=== PATIENT | female | born 1940 | race Caucasian/White ===

== ENCOUNTER 2020-01-01 07:50 | Day surgery (SDC) | payer MEDICARE ==
[~2020-01-01] VITALS: Ht 157.5 cm; Wt 63.5 kg
[~2020-01-01 07:50] MED LIST: ASPIR-LOW81 MG PO; CARBIDOPA-LEVO1 EAC1 PO; ENALAPRIL MALEA20 MG PO; HYDROCHLOROTHIA25 MG PO; LOVASTATIN20 MG PO; NORVASC5 MG PO; OXYBUTYNIN CHLO10 MG PO; ROPINIROLE HCL1 MG PO; VITAMIN B COMP1 EAC1 PO; VITAMIN D310 MC5 PO
--- NOTE | 2020-01-01 12:17 | NUR ---
01/01/20 1217 Sheets,Lin 1212 PT ARRIVED TO PACU WITH ORAL AIRWAY IN PLACE AND O2 MASK AT 6L. RESP EVEN AND UNLABORED. 4 LAP SITES TO ABD. IV INFUSING.
--- NOTE | 2020-01-02 06:24 | OR ---
[facility] [address] [place], [place] [address] Signed DATE OF OPERATION: 01/01/2020 SURGEON: Oren Sandra MD PREOPERATIVE DIAGNOSES: 1. Chronic cholecystitis with cholelithiasis. 2. Biliary colic. POSTOPERATIVE DIAGNOSES: 1. Chronic cholecystitis with cholelithiasis. 2. Biliary colic. PROCEDURE PERFORMED: Laparoscopic cholecystectomy with intraoperative cholangiogram. ESTIMATED BLOOD LOSS: None. FINDINGS: Nelda had three moderate-sized gallstones in the gallbladder. She had some mild chronic inflammatory changes. The intraoperative cholangiogram was unremarkable. INDICATIONS: Nelda is a 79-year-old female, who had been asked to see me in the office. She came with her daughter. She has been having trouble with right upper quadrant abdominal pain radiating through to her back. She said it is intermittent, but it has been getting worse. She said it is often worse, but not always. She also has Parkinson disease. She said that has been pretty stable. She does get around with her 4-point cane. Her daughter actually stays with her six days a week to help her out. She can still drive herself around town. Her daughter had confirmed her symptoms. She ended up with an ultrasound showing her gallstones. However, on physical exam, she had a new systolic ejection murmur. We had her see our sample grinder and she went through that just fine including the echocardiogram. She returns now to have the gallbladder removed. She and her 2 daughters both told me the symptoms have continued. While in the office, I gave them a [employer] brochure on the gallbladder. They are very familiar with the location and function of the gallbladder. We discussed laparoscopic versus open cholecystectomy. They understand the expected intraop and postop course. There is risk to surgery including, but not limited to bleeding, infection, scarring, change in contour of the skin, damage to bowel, damage to main bile duct, incisional hernias, and other unforeseen comorbidities. In addition, we did address her Parkinson disease. There is Electronically Signed By: OREN SANDRA MD 01/02/20 0624 PATIENT NAME: NELDA CHAVIRA OPERATIVE REPORT DATE OF : 42 REPORT #: [id number] PHYSICIAN: OREN SANDRA MD PCP: KWAME WEAVER PA-C REPORT IS CONFIDENTIAL AND NOT TO BE RELEASED WITHOUT AUTHORIZATION [facility] [address] [place] [id number] Signed always concern that it could make the Parkinson disease worse. They had expressed understanding, wished to proceed. PROCEDURE NOTE: Nelda was taken in the operating room and placed in the supine position. She was placed under general endotracheal tube anesthesia. She was given preoperative antibiotics along with subcutaneous heparin. SCDs were utilized. She was then prepped and draped in the usual sterile fashion. All trocars were then placed in usual positions under direct visualization of camera without difficulty. She has a previous right paramedian incision from an appendectomy. She had some adherent omentum in that area and we simply left that intact. Pictures were taken throughout for photodocumentation. We grasped the gallbladder and elevated the right upper quadrant. The triangle of Calot was dissected free and a clip was placed across the cystic artery and it was divided. We could easily see the lymph node of Calot. Intraoperative cholangiocatheter was inserted into the cystic duct. The intraoperative cholangiogram was then performed. This was found to be unremarkable. There were no filling defects and the contrast flowed readily into the duodenum. The gallbladder was observed. The cystic duct stump was then secured with a PDS Endoloop and 2 clips were placed across the cystic duct stump to don its location. The gallbladder was then removed from the gallbladder fossa with the help of the cautery and placed into an EndoCatch bag. The right upper quadrant was irrigated and suctioned out until clear. We used our laparoscopic suturing device to pass 0 Vicryl suture on either side of fascia of subxiphoid trocar site. This was tied down to close this fascia primarily. After this, the gas was allowed to escape and all trocars removed along with the gallbladder. The gallbladder was opened on the back table by our circulating nurse for photodocumentation. We closed the fascia of the supraumbilical trocar site with interrupted [id number] and simple 0 Vicryl sutures. Local anesthetic was injected into all trocar sites. Each trocar site was irrigated and suctioned out until clear. The skin and dermis of each trocar site were closed with interrupted 3-0 subcuticular Monocryl sutures. Dry gauze and tape were applied to all incisions. After this, Nelda was awakened from anesthesia, extubated in the OR, and taken to Recovery in stable condition. Oren Sandra MD [facility] /[id number] Electronically Signed By: OREN SANDRA MD 01/02/20 0624 PATIENT NAME: NELDA CHAVIRA OPERATIVE REPORT DATE OF : 42 REPORT #: [id number] PHYSICIAN: OREN SANDRA MD PCP: KWAME WEAVER PA-C REPORT IS CONFIDENTIAL AND NOT TO BE RELEASED WITHOUT AUTHORIZATION [address] [facility] [place], [place] [address] Signed cc: MD Kwame Hernandez PA Stephen Ewer, MD Copies: OREN SANDRA MD, STEPHEN MD ~ Electronically Signed By: OREN SANDRA MD 01/02/20 0624 PATIENT NAME: NELDA CHAVIRA OPERATIVE REPORT DATE OF : 42 REPORT #: [id number] PHYSICIAN: OREN SANDRA MD PCP: KWAME WEAVER PA-C REPORT IS CONFIDENTIAL AND NOT TO BE RELEASED WITHOUT AUTHORIZATION
--- NOTE | 2020-01-02 15:05 | PATH ---
[facility] [address] [place], [place] [address] Signed SPECIMEN(S): A GALLBLADDER AND STONES SPECIMEN SOURCE: A. GALLBLADDER AND STONES CLINICAL HISTORY: Cholelithiasis. FINAL PATHOLOGIC DIAGNOSIS: Gallbladder, cholecystectomy: - Chronic cholecystitis. - Adenomyoma. - Cholelithiasis. NAL:cml:C2NR MICROSCOPIC EXAMINATION: Histologic sections of all submitted blocks are examined by light microscopy. These findings, together with the gross examination, support the pathologic diagnosis. GROSS DESCRIPTION: The specimen, labeled "KB, A" and "gallbladder and stones" on the requisition, is received in formalin and consists of Specimen: Previously opened gallbladder. Dimensions: 7.5 x 3.5 x 3.0 cm. Serosa: [place] and smooth. Cystic Duct: Unobstructed. Calculi: Three hard black smooth multifaceted calculi that vary from 1.4-1.7 cm. Mucosa: Pale red and velvety. Wall thickness: 0.1-0.2 cm. Lymph node: No pericystic lymph node is grossly identified. Additional: None. Roofer Gypsum sections are submitted in cassette A1. SS (under the direct supervision of a pathologist) The Gross Description was prepared using a voice recognition system. The report was reviewed for accuracy; however, sound-alike word errors, addition and/or deletions may occur. If there is any question about this report, please contact Client Services. PERFORMING LABORATORY: PATIENT NAME: NELDA CHAVIRA PATHOLOGY DATE OF : 42 REPORT #: [id number] PHYSICIAN: POLINA FLANAGAN PCP: KWAME WEAVER PA-C REPORT IS CONFIDENTIAL AND NOT TO BE RELEASED WITHOUT AUTHORIZATION [facility] [address] [place], [place] [address] Signed The technical component [place] [address] (Small Engine Mechanic: Julia Gonsalez MD; CLIA# [id number]). Professional [facility] [address] [address] (CLIA# [id number]). Diagnostician: Ashley Mayfield MD Pathologist Electronically Signed 01/02/2020 Copies: ~ PATIENT NAME: NELDA CHAVIRA PATHOLOGY DATE OF : 42 REPORT #: [id number] PHYSICIAN: POLINA FLANAGAN PCP: KWAME WEAVER PA-C REPORT IS CONFIDENTIAL AND NOT TO BE RELEASED WITHOUT AUTHORIZATION
== END 2020-01-01 14:45 | disposition home or self-care (01) ==
LOC: DS 07:50
PROVIDERS: Colon & Rectal Surgery
PROC: BF13YZZ Fluoroscopy of Gallbladder and Bile Ducts using Other Contrast (ICD-10-PCS; 2020-01-01)
PROC: 0FT44ZZ Resection of Gallbladder, Percutaneous Endoscopic Approach (ICD-10-PCS; principal; 2020-01-01 09:15)
DX: K80.10 Calculus of gallbladder with chronic cholecystitis without obstruction (principal); D13.5 Benign neoplasm of extrahepatic bile ducts; I10 Essential (primary) hypertension; E78.5 Hyperlipidemia, unspecified; M19.90 Unspecified osteoarthritis, unspecified site; G20 Parkinson's disease; K21.9 Gastro-esophageal reflux disease without esophagitis; K59.00 Constipation, unspecified; Z79.82 Long term (current) use of aspirin; Z79.899 Other long term (current) drug therapy; Z87.891 Personal history of nicotine dependence
CPT/HCPCS: 74300; J0690; J1100; J1644; J1885; J2001; J2370; J2405; J2704; J3010; Q9967

== ENCOUNTER 2021-04-04 06:32 | Emergency (ER) | payer MEDICARE ==
[~2021-04-04] VITALS: Ht 157.5 cm; Wt 63.5 kg
[2021-04-04] MEDS ORDERED: ONDANSETRON ODT8 MG PO (09:19)
== END 2021-04-04 09:35 | disposition home or self-care (01) ==
LOC: ED 06:32
DX: K92.1 Melena (principal); G20 Parkinson's disease; I10 Essential (primary) hypertension; Z79.899 Other long term (current) drug therapy
CPT/HCPCS: 80053; 85025; 85610; 85730; 86850; 86900; 86901; 99284; J7040

== ENCOUNTER 2021-05-26 14:19 | Emergency (ER) | payer MEDICARE ==
[~2021-05-26] VITALS: Ht 152.4 cm; Wt 60.3 kg
[~2021-05-26 14:19] MED LIST changes: +ONDANSETRON ODT8 MG PO
== END 2021-05-26 18:20 | disposition home or self-care (01) ==
LOC: ED 14:19
DX: S46.911A Strain of unspecified muscle, fascia and tendon at shoulder and upper arm level, right arm, initial encounter (principal); S76.912A Strain of unspecified muscles, fascia and tendons at thigh level, left thigh, initial encounter; S00.03XA Contusion of scalp, initial encounter; I10 Essential (primary) hypertension; G20 Parkinson's disease; W01.198A Fall on same level from slipping, tripping and stumbling with subsequent striking against other object, initial encounter; Z23 Encounter for immunization; Z79.899 Other long term (current) drug therapy
CPT/HCPCS: 70450; 71045; 73030; 73552; 90471; 90715; 99284-25

== ENCOUNTER 2023-02-18 09:13 | Inpatient (IN) | payer MEDICARE ==
[~2023-02-18] VITALS: Ht 152.4 cm; Wt 58.2 kg
[2023-02-18] VITALS (14 sets, daily range): BP systolic 92–143; BP diastolic 40–54
--- OUTSIDE RECORDS SUMMARY | 2023-02-18 09:14 | XMS ---
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 ESebastian VISIT COUNT (12 MO.) 1 MIGUEL Campos TOTAL 1 NOTE: Visits indicate total known visits. ED/UCC VISIT TRACKING (12 MO.) 02/18/2023 09:13 [facility] OR TYPE: Emergency COMPLAINT: - WEAKNESS INPATIENT VISIT TRACKING (12 MO.) No inpatient visits to display in this time frame [email or web address]
[2023-02-19] VITALS (81 sets, daily range): BP systolic 12–123; BP diastolic 31–73
[2023-02-19] MEDS ORDERED: BAYER CHEWABLE81 MG PO (06:33)
[2023-02-19] MEDS ORDERED: NEURONTIN100 MG PO (06:34)
[2023-02-19] MEDS ORDERED: METAMUCIL GUMMIES (06:35)
[2023-02-19] MEDS ORDERED: CA/MG/ZINC (06:36)
--- NOTE | 2023-02-19 16:43 | EKG ---
[facility] [address] [facility] [place], [place] [address] Signed Normal sinus rhythm Normal ECG No previous ECGs available Confirmed by KONRAD BAEZ MD ([id number]) on 02/19/2023 4:42:48 PM Electronically Signed By: KONRAD BAEZ MD 02/19/23 1643 PATIENT NAME: NELDA CHAVIRA Electrocardiogram DATE OF : 42 PHYSICIAN: KONRAD BAEZ MD REPORT #: [id number] REPORT IS CONFIDENTIAL AND NOT TO BE RELEASED WITHOUT AUTHORIZATION
[2023-02-20] VITALS (18 sets, daily range): BP systolic 75–1110; BP diastolic 45–64
[2023-02-20] MEDS ORDERED: TROSPIUM CHLORI20 MG PO (08:22)
[2023-02-20] MEDS ORDERED: OXYBUTYNIN CHLO15 MG PO (08:24)
[2023-02-21 05:15] VITALS: BP 137/63
[2023-02-21 09:24] VITALS: BP 135/61
[2023-02-21 14:13] VITALS: BP 124/60
[2023-02-21 16:22] VITALS: BP 119/44
[2023-02-21 21:10] VITALS: BP 127/60
[2023-02-22 06:08] VITALS: BP 138/63
[2023-02-22 09:38] VITALS: BP 150/73
[2023-02-22 13:32] VITALS: BP 138/67
[2023-02-22 14:22] VITALS: BP 149/69
[2023-02-22 18:19] VITALS: BP 153/77
[2023-02-22 19:48] VITALS: BP 144/70
[2023-02-23 05:52] VITALS: BP 149/68
[2023-02-23 09:57] VITALS: BP 135/61
[2023-02-23 15:28] VITALS: BP 139/57
[2023-02-23 16:51] VITALS: BP 129/55
[2023-02-23 20:22] VITALS: BP 131/59
[2023-02-24 05:49] VITALS: BP 148/70
[2023-02-24 09:21] VITALS: BP 152/71
[2023-02-24] MEDS ORDERED: [UNRECOGNIZED DRUG - OTHER] PO (11:52)
[2023-02-24 12:40] VITALS: BP 152/71
[2023-02-25] MEDS ORDERED: VENTOLIN HFA18 GM INH (16:16)
[2023-02-25] MEDS ORDERED: LEVOFLOXACIN500 MG PO (17:59)
== END 2023-02-24 12:45 | disposition home or self-care (01) | DRG 871 ==
LOC: ED 09:13 → MS 16:39 → CCU 16:39 → MS 02-20 17:17
PROVIDERS: ADMIT Internal Medicine; ATTEND Family Medicine
PROC: 3E033XZ Introduction of Vasopressor into Peripheral Vein, Percutaneous Approach (ICD-10-PCS; 2023-02-18)
PROC: 05H933Z Insertion of Infusion Device into Right Brachial Vein, Percutaneous Approach (ICD-10-PCS; 2023-02-18)
PROC: 3E03329 Introduction of Other Anti-infective into Peripheral Vein, Percutaneous Approach (ICD-10-PCS; 2023-02-18)
PROC: 0T9B70Z Drainage of Bladder with Drainage Device, Via Natural or Artificial Opening (ICD-10-PCS; principal; 2023-02-24)
DX: A41.9 Sepsis, unspecified organism (principal); G93.41 Metabolic encephalopathy; R65.21 Severe sepsis with septic shock; N17.9 Acute kidney failure, unspecified; Z20.822 Contact with and (suspected) exposure to COVID-19; Z66 Do not resuscitate; K52.9 Noninfective gastroenteritis and colitis, unspecified; I10 Essential (primary) hypertension; E78.5 Hyperlipidemia, unspecified; E87.6 Hypokalemia; I95.9 Hypotension, unspecified; R74.8 Abnormal levels of other serum enzymes; N32.81 Overactive bladder; E03.9 Hypothyroidism, unspecified; G20 Parkinson's disease; G25.81 Restless legs syndrome; R41.0 Disorientation, unspecified; R13.12 Dysphagia, oropharyngeal phase; J44.9 Chronic obstructive pulmonary disease, unspecified; Z90.49 Acquired absence of other specified parts of digestive tract; Z90.89 Acquired absence of other organs; Z79.890 Hormone replacement therapy; Z99.81 Dependence on supplemental oxygen; Z79.82 Long term (current) use of aspirin; Z79.899 Other long term (current) drug therapy
CPT/HCPCS: 36415; 36573; 71045; 74018; 74176; 74230; 80048; 80053; 81003; 82570; 83605; 83690; 83735; 84300; 84550; 85025; 87040; 87045; 87493; 92526; 92611; 93005; 93010; 97110; 97162; 97167; 97530; 97535; 99285-25; A9270; C9113; C9803; J1650; J1940; J1956; J2405; J2543; J3475; J3480; J3490; J7030; J7060; J7121; U0003

== ENCOUNTER 2023-02-25 14:52 | Emergency (ER) | payer MEDICARE ==
[~2023-02-25] VITALS: Ht 152.4 cm; Wt 58.1 kg
[~2023-02-25 14:52] MED LIST changes: +BAYER CHEWABLE81 MG PO; +CA/MG/ZINC; +METAMUCIL GUMMIES; +NEURONTIN100 MG PO; +OXYBUTYNIN CHLO15 MG PO; +TROSPIUM CHLORI20 MG PO; +[UNRECOGNIZED DRUG - OTHER] PO
--- OUTSIDE RECORDS SUMMARY | 2023-02-25 14:54 | XMS ---
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 E.D. VISIT COUNT (12 MO.) 2 [facility] TOTAL 2 NOTE: Visits indicate total known visits. ED/UCC VISIT TRACKING (12 MO.) 02/25/2023 14:52 [facility] OR TYPE: Emergency COMPLAINT: - SOB 02/18/2023 09:13 [facility] OR TYPE: Emergency COMPLAINT: - WEAKNESS INPATIENT VISIT TRACKING (12 MO.) 02/18/2023 16:39 MIGUEL [facility] OR TYPE: Medical Surgical COMPLAINT: - SOPHIA [email or web address]
[2023-02-25] MEDS ORDERED: VENTOLIN HFA18 GM INH (16:16)
[2023-02-25] MEDS ORDERED: LEVOFLOXACIN500 MG PO (17:59)
[2023-02-25 18:16] VITALS: BP 135/57
== END 2023-02-25 18:16 | disposition home or self-care (01) ==
LOC: ED 14:52
DX: J18.9 Pneumonia, unspecified organism (principal); I10 Essential (primary) hypertension; G20 Parkinson's disease; Z79.82 Long term (current) use of aspirin; Z79.899 Other long term (current) drug therapy
CPT/HCPCS: 36415; 71045; 80053; 85025; 99284-25

== ENCOUNTER 2023-10-11 17:46 | Inpatient (IN) | payer MEDICARE ==
[~2023-10-11] VITALS: Ht 152.4 cm; Wt 48.0 kg
[~2023-10-11 17:46] MED LIST changes: +LEVOFLOXACIN500 MG PO; +METAMUCIL FIBER2 GM PO; -METAMUCIL GUMMIES; +VENTOLIN HFA18 GM INH
[2023-10-11] MEDS ORDERED: TROSPIUM CHLORI20 MG PO (18:38)
[2023-10-11] MEDS ORDERED: HYDROCHLOROTHIA25 MG PO (18:38)
[2023-10-11 19:10] LABS: HEMATOCRIT 45.3 % (35.0-50.0); HEMOGLOBIN 14.6 g/dL (12.0-18.0); MCH 26.8 (27-36); MCHC 32.2 g/dl (30-36); MCV 83.3 fl (81-99); PLATELET COUNT 346 K/uL (140-440); RBC 5.44 M/ul (4.3-5.7); RDW 13.8 (10.5-15.0)
[2023-10-11 19:10] LABS: BILIRUBIN, URINE NEGATIVE (negative); BLOOD/HGB, URINE NEGATIVE (Negative); KETONE, URINE NEGATIVE (Negative); LEUK ESTERASE, URINE NEGATIVE (negative); NITRITE, URINE NEGATIVE (negative); PH, URINE 5.5 (5-7)
[2023-10-11 19:27] LABS: ALBUMIN 3.7 g/dL (3.4-5.0); ALBUMIN/GLOBULIN RATIO 1.19 (1.1-2.4); ANION GAP 13.6 (7-21); BILIRUBIN, TOTAL 1.4 ng/dL (0.2-1.0); BUN/CREATININE RATIO 21.6 (6.0-28.6); CALCIUM 9.6 mg/dL (8.5-10.1); CREATININE, SERUM 1.25 mg/dL (0.55-1.02); POTASSIUM 3.6 mmol/L (3.5-5.1); PROTEIN, TOTAL 6.8 g/dL (6.4-8.2)
[2023-10-11 19:34] LABS: BANDS, MANUAL DIFF 2; LYMPHOCYTES, MANUAL DIFF 3; MONOCYTES, MANUAL DIFF 3; NEUTROPHILS, MANUAL DIFF 92
[2023-10-11 20:47] LABS: LACTIC ACID, BLOOD 2.2 mmol/L (0.4-2.0)
[2023-10-11 22:19] VITALS: BP 103/45
[2023-10-11 22:30] VITALS: BP 102/48
--- NOTE | 2023-10-11 22:30 | NUR ---
PATIENT ARRIVED TO THE UNIT VIA STRETCHER. MOVED OVER TO BED WITH 2PA. PATIENT TOLERATED WELL. PATIENT IS TIRED BUT ORIENTED X4. VS STABLE. LUNG SOUNDS CLEAR. NO NAUSEA AT THIS TIME. ABD SOFT BUT TENDER. ATTENDS IN PLACE, CLEAN AND DRY. ASSISTED PATIENT TO POSITION FOR COMFORT. IV SITE WNL X1; IV FLUIDS AND ABX STARTED PER ORDER. PATIENT'S FAMILY ASSISTED IN PATIENT'S ADDMISSION QUESTIONS, THEY ARE HER CAREGIVERS. FAMILY TAKING ALL BELONGINGS WITH THEM EXCEPT THE PATIENT'S BLANKET. CONTACT INFORMATION VERIFIED.
[2023-10-11 23:00] VITALS: BP 100/51
[2023-10-12] VITALS (25 sets, daily range): BP systolic 82–116; BP diastolic 37–52
--- NOTE | 2023-10-12 01:00 | NUR ---
PATIENT APPEARS TO BE SLEEPING. WAKES EASILY TO VOICE. REPORTS BEING COMFORTABLE. ATTENDS ARE CLEAN AND DRY. IV FLUIDS INFUSING PER ORDER, SITE WNL. CALL LIGHT IN HAND.
--- NOTE | 2023-10-12 03:00 | NUR ---
PATIENT BP TRENDING DOWN. NO URINE OUTPUT. CALLED AND REPORTED LOW BP AND LACK OF OUTPUT TO . ORDER TO PROVIDED AN ADDITIONAL 250 MLS OF NS A BOLUS AND CONTINUE CURRENT IV FLUIDS. VERIFIED VIA REPEAT BACK. PATIENT PROVIDED 250MLS OVER 15MINS AND THEN IV FLUIDS CONTINUED AT 125 ML/HR. Q15M VS AT THIS TIME.
--- NOTE | 2023-10-12 04:15 | NUR ---
PATIENT'S BP CONTINUES TO BE CONCERNING. BLADDER SCAN SHOWED 375 MLS. PATIENT HAS YET TO VOID. PATIENT WAKES TO VOICE BUT IS DROWSY. REPORTED FINDINGS TO . ORDER RECEIVED FOR REPEAT 250 ML BOLUS AND BARRETO PLACEMENT. VERIFIED VIA REPEAT BACK.
--- NOTE | 2023-10-12 05:15 | NUR ---
UPDATE GIVEN TO . ORDER RECIEVED FROM 1L BOLUS TO START NOW. BARRETO TO BE PLACED.
[2023-10-12 05:27] LABS: BASOPHILS 0.5 % (0-2); HEMATOCRIT 33.7 % (35.0-50.0); HEMOGLOBIN 11.1 g/dL (12.0-18.0); LYMPHOCYTES 12.3 % (24-44); MCH 27.3 (27-36); MCV 82.5 fl (81-99); MONOCYTES 5.4 % (0-12); NEUTROPHILS 81.8 % (39-80); PLATELET COUNT 226 K/uL (140-440); RBC 4.08 M/ul (4.3-5.7); RDW 13.9 (10.5-15.0)
--- NOTE | 2023-10-12 05:30 | NUR ---
BARRETO PLACED WITHOUT ISSUES. DARK RHEA COLORED URINE NOTED. 350 MLS OUT INITIALLY. PATIENT TOLERATED WELL. SHE WAS ABLE TO ROLL TO ASSIST IN CHANGING HER ATTEND AND HAD A SMALL BM. PATIENT IS HOWEVER MORE DROWSY THAN PREVIOUSLY NOTED ON ADMISSION. ORIENTED X4.
[2023-10-12 05:38] LABS: ANION GAP 11.9 (7-21); BUN/CREATININE RATIO 29.34 (6.0-28.6); CALCIUM 7.6 mg/dL (8.5-10.1); CREATININE, SERUM 0.92 mg/dL (0.55-1.02); MAGNESIUM 1.5 mg/dL (1.8-2.4); POTASSIUM 2.9 mmol/L (3.5-5.1)
--- NOTE | 2023-10-12 06:01 | NUR ---
20G IV PLACED IN RAC, 2 ATTEMPTS. PT TOLERATED WELL. CALL LIGHT IN REACH.
--- NOTE | 2023-10-12 06:34 | NUR ---
UPDATE PROVIDED TO . WILL COME TO SEE PATIENT. ORDERS RECEIVED FROM ADDITIONAL 1L NS BOLUS. MAG AND K+ REPLACEMENT. SEE EMAR. VERIFIED VIA REPEAT BACK.
--- NOTE | 2023-10-12 06:36 | NUR ---
PATIENT UPDATED ON HER BP AND ELECTROLYTE RELACEMENT. PATIENT APPEARS TO HAVE MODERATE UNDERSTANDING OF HER SITUATION. PATIENT DROWSY BUT ALERTS TO VOICE AND IS ORIENTED X4. SIPS OF WATER PROVIDED.
--- NOTE | 2023-10-12 07:30 | NUR ---
IN TO SEE PATIENT AND LISTEN TO RN REPORT. ORDER RECIEVED FOR ONE TIME DOSE OF MIDODRINE. SEE EMAR.
--- NOTE | 2023-10-12 08:00 | NUR ---
REPORT RECIEVED FROM SANDWICH MACHINE OPERATOR RN. PER REPORT PATIENTS BLOOD PRESSURE HAS BEEN LOW. PATIENT ORDER FOR MIDODRINE PLACED PER MD. MD AWARE PATIENTS BLOOD PRESSURES HAVE REMAINED LOW EVEN WITH CONTINUED BOLUS OF FLUIDS PER ORDERS. PER REPORT PATIENT IS ALERT BUT DROWSY.
--- NOTE | 2023-10-12 08:49 | NUR ---
THIS RN IN TO DO AM MEDICATIONS. PATIENT BLOOD PRESSURE 80'S SYSTOLIC. PATIENTS DAUGHTERS AT THE BEDSIDE. UPDATED ON PLAN OF CARE AND MEDICATION ADMINISTRATION. PATIENT REMAINS DROWSY BUT IS ALERT AND ORIENTED. PATIENT BREATHSOUNDS ARE CLEAR AND DIMINISHED PATIENT TAKES SHAWLOW BREATHS. RT IN TO DO ASSESSMENT. NO OTHER NEEDS AT THIS TIME.
--- NOTE | 2023-10-12 11:00 | NUR ---
MEDICATIONS GIVEN WITH PUDDING THIS AM. PATIENT TOLERATED WELL. PATIENTS DAUGHTERS IN AT THE BEDSIDE. PATIENT IS MORE ALERT WITH BLOOD PRESSURES IMPROVING. PATIENT SITTING UP IN BED AND WATCHING TV.
--- NOTE | 2023-10-12 11:10 | NUR ---
Spoke with pt and her daughter, Desiree. Daughter live with mom and provides full care. Pt has multiple pieces of DME and denies need for more. Pt has a ramp into her home also. Pt states she gets around her home using her scooter. She also has a house keeper 1 x per week. They deny financial issues. Pt plans on dc to home daughter will assist.
--- NOTE | 2023-10-12 11:12 | NUR ---
CCU ROUNDS. PT PRESENTED POSITIVE DEMEANOR. PROVIDED SUPPORTIVE PRESENCE. PROVIDED PRAYER. PT EXPRESSED GRATITUDE.
[2023-10-12] MEDS ORDERED: ENALAPRIL MALEA20 MG PO (11:44)
[2023-10-12] MEDS ORDERED: KLOR-CON M1515 MEQ PO (11:44)
[2023-10-12] MEDS ORDERED: MELATONIN5 M2 PO (12:52)
--- NOTE | 2023-10-12 12:53 | NUR ---
MED REC COMPLETE
--- NOTE | 2023-10-12 13:00 | NUR ---
PATIENTS BLOOD PRESSURES CONTINUE TO DO OKAY AT THIS TIME. PATIENTS DAUGHTERS ASSISTED PATIENT WITH HER LUNCH. NO OTHER NEEDS AT THIS TIME.
[2023-10-12 13:59] LABS: ALBUMIN 2.1 g/dL (3.4-5.0); ANION GAP 12.3 (7-21); BILIRUBIN, TOTAL 0.7 ng/dL (0.2-1.0); BUN/CREATININE RATIO 25.58 (6.0-28.6); CALCIUM 7.2 mg/dL (8.5-10.1); CREATININE, SERUM 0.86 mg/dL (0.55-1.02); MAGNESIUM 1.9 mg/dL (1.8-2.4); POTASSIUM 3.3 mmol/L (3.5-5.1); PROTEIN, TOTAL 4.2 g/dL (6.4-8.2)
--- NOTE | 2023-10-12 15:01 | NUR ---
UPDATED MD RETSREPO ABOUT PATIENTS REPEAT LABS AND PATIETNS BLOOD PRESSURE BACK IN THE 80 SYSTOLIC. NEW ORDERS PLACED PER MD BELLS VERBAL ORDERS READ BACK ND REPEATED. POTASSIUM AND MIDODRINE ORDERS PLACED.
--- NOTE | 2023-10-12 17:00 | NUR ---
PATIENTS ASSESSMENT REMAINS UNCHANGED. PATIENTS DAUGHTERS LEFT AT THIS TIME. THEY DID ASK IF SOMETHING CHANGES IN THE NIGHT TO PLEASE NOTIFY THEM. PATIENT HAS CALL LIGHT AND AWAITING DINNER AT THIS TIME.
--- NOTE | 2023-10-12 18:30 | NUR ---
PATIENT ATE A FEW BITES OF DINNER. PATIENT CALLED AND DINNER REMOVED AND WARM BLANKET PLACED PER PATIENTS REQUEST. PATIENT HAS CALL LIGHT IN HER HAND AT THIS TIME. PATIENTS BLOOD PRESSURES HAVE REMAINED STABLE AT THIS TIME. PER MD IF PRESSURES DROP IN THE NIGHT TO NOTIFY MD FOR FURTHER ORDERS.
--- NOTE | 2023-10-12 19:18 | EKG ---
[facility] [address] [facility] [place] [address] Signed Normal sinus rhythm Left axis deviation Possible Inferior infarct , age undetermined Abnormal ECG When compared with ECG of 28-MAR-2023 19:05, Borderline criteria for Inferior infarct are now present Non-specific change in ST segment in Anterior leads Nonspecific T wave abnormality now evident in Inferior leads T wave inversion now evident in Anterior leads Confirmed by JUDIE RESTREPO MD ([id number]) on 10/12/2023 7:18:02 PM Electronically Signed By: JUDIE RESTREPO 10/12/23 191 PATIENT NAME: NELDA CHAVIRA Electrocardiogram DATE OF : 42 PHYSICIAN: JUDIE RESTREPO REPORT #: [id number] REPORT IS CONFIDENTIAL AND NOT TO BE RELEASED WITHOUT AUTHORIZATION
--- NOTE | 2023-10-12 20:59 | NUR ---
SBAR REPORT RECEIVED FROM WESLY BIGGS. PATIENT NELDA IS FOUND TO BE WATCHING TV AND DENIES ANY CURRENT NEEDS. VSS AND WDL PER MONITOR. PER PATIENT REQUEST PO MEDICATION WAS ADMINISTERED IN PUDDING. 2GM CEFEPIME GTT HUNG. ROUNDS WITH MD RESTREPO COMPLETED AT BEGINNING OF SHIFT. WILL MONITOR FOR HYPOTENSION AND/OR TACHYCARDIA. INDWELLING BARRETO CATHETER REMAINS PATENT AND INTACT. ADULT DIAPER CHANGED.
[2023-10-13] VITALS (14 sets, daily range): BP systolic 89–159; BP diastolic 37–66
--- NOTE | 2023-10-13 01:06 | NUR ---
PATIENT CAIT DENIES ANY NEEDS OR DESIRES AT THIS POINT. SHE IS NOTED TO BE WATCHING TV. A WARM BLANKET WAS PROVIDED AND 2200MEDS ADMINISTERED. UROMETER EMPTIED
--- NOTE | 2023-10-13 01:10 | NUR ---
UROMETER EMPTIED. PATIENT CAIT DENIES ANY NEEDS AT THIS POINT. SHE IS NOTED TO BE RESTING WITH EYES CLOSED. VSS AND WDL PER MONITOR.
--- NOTE | 2023-10-13 03:25 | NUR ---
PATIENT CAIT IS NOTED TO BE RESTING WITH EYES CLOSED. VSS AND WDL PER MONITOR. MAINTENANCE GTT IN USE. INDWELLING BARRETO CATHETER IS PATENT AND INTACT.
--- NOTE | 2023-10-13 05:10 | NUR ---
NELDA HAD A FAIRLY PLEASANT EVENING. SHE WAS NOTED TO REST UNTIL APPROX 0400 WHEN SHE NEEDED A DIAPER CHANGE AND SHAYLEE CARE. AFTERWARDS SHE WANTED TO WATCH TV AND STATED THAT SHE WAS "DONE RESTING FOR NOW" NEURO- ALERT AND ORIENTED X4. LOW SPEECH, ABLE TO EXPRESS ALL NEEDS AND DESIRES, MOVES ALL EXTREMITIES. PERRL, DENIED PAIN CARDIAC- SR, HYPOTENSIVE, AFEBRILE, NO EDEMA NOTED RESP- RA, SPOT CHECK, BREATH SOUNDS CLEAR, ABLE TO COUGH AND DEEP BREATH GI/- INDWELLING BARRETO CATHETER, APPROPRIATE URINE OUTPUT, CLEAR URINE, 3 BROWN LIQUID STOOLS, ADULT DIAPER IN PLACE, SHAYLEE CREAM IN USE FOR FRAGILE AND REDDENED SKIN INT- SEE ORIGINAL ASSESSMENT. REDDENED SHAYLEE AREA
[2023-10-13 05:49] LABS: BASOPHILS 0.8 % (0-2); EOSINOPHILS 1.5 % (0-6); HEMATOCRIT 31.7 % (35.0-50.0); HEMOGLOBIN 10.5 g/dL (12.0-18.0); MCH 27.5 (27-36); MCHC 33.1 g/dl (30-36); MCV 83.1 fl (81-99); MONOCYTES 7.4 % (0-12); NEUTROPHILS 66.3 % (39-80); PLATELET COUNT 195 K/uL (140-440); RBC 3.81 M/ul (4.3-5.7)
[2023-10-13 06:07] LABS: ANION GAP 9.8 (7-21); BUN/CREATININE RATIO 22.58 (6.0-28.6); CALCIUM 7.9 mg/dL (8.5-10.1); CREATININE, SERUM 0.62 mg/dL (0.55-1.02); MAGNESIUM 1.6 mg/dL (1.8-2.4); POTASSIUM 2.8 mmol/L (3.5-5.1)
--- NOTE | 2023-10-13 07:30 | NUR ---
REPORT RECIEVED FROM EARLY CHILDHOOD SERVICES COORDINATOR RN. PATIENT RESTING IN BED. PATIENTS DAUGHTERS JUST ARRIVED. WILL UPDATE ON PLAN OF CARE. CALL LIGHT IN REACH AND PATIENT CALLS APPROPRIATELY.
--- NOTE | 2023-10-13 09:30 | NUR ---
PATIENT HAD AN INCONT LOOSE STOOL. PATIENTS DAUGHTERS IN T HE ROOM ASSISTING PATIENT TO THE CAMMODE. THIS RN IN AND NOTICED THIS. UPDATED PATIENTS FAMILY THAT IF SHE NEEDS TO GET UP TO PLEASE CALL SO STAFF CAN DO CORD MANAGEMENT PRIOR TO PATIENT MOVING. KENIA RN IN TO ASSIST PATIENT AFTER PATIENT ON THE CAMMODE. PT WILL BE IN TO WORK WITH PATIENT IN A LITTLE BIT.
--- NOTE | 2023-10-13 10:14 | NUR ---
PT HAD INCONTIENT BOWEL MOVEMENT. ATTENDS AND CHUX CHANGED, RNS COMPLETED PERICARE AND BARRETO CARE. BARRIER CREAM AND DESITIN APPLIED TO PT. FRESH GOWN AND WARM BLANKETS APPLIED TO PT. PT REPOSITIONED IN BED. HOB ELEVATED. CALL LIGHT WITHIN REACH, FAMILY AT BEDSIDE. BED IN LOWEST POSITION AND LOCKED, SIDE RAILS RAISED FOR SAFETY.
--- NOTE | 2023-10-13 10:55 | NUR ---
PHYSICAL THERAPY IN WORKING WITH PATIENT. PATIENT HAD ANOTHER LOOSE BM. STAFF DENY ANY ASSISTANCE NEEDS AT THIS TIME.
--- NOTE | 2023-10-13 11:00 | NUR ---
Quick conversation with pts family. Daughter denies needs. Pt is working with PT. No change in plan for this pt.
--- NOTE | 2023-10-13 11:04 | NUR ---
CCU ROUNDS. PHYSICAL THERAPY IN ROOM WITH PT. DID NOT INTERRUPT. PROVIDED SILENT PRAYER.
[2023-10-13 12:25] LABS: MAGNESIUM 2.1 mg/dL (1.8-2.4); POTASSIUM 4.1 mmol/L (3.5-5.1)
--- NOTE | 2023-10-13 12:30 | NUR ---
PT CALLED, REQUESTING TO GO FROM CHAIR BACK TO BED. PT AMBULATED WITH WALKER AND 1 RN ASSIST. PT SHUFFLED TO BED, ABLE TO BRING FEET UP TO BED. PT BOOSTED IN BED BY 2 RN. HOB ELEVATED AND PLACED IN POSITION OF COMFORT, WARM BLANKETS APPLIED, CALL LIGHT WITHIN REACH. BED IN LOWEST POSITION AND LOCKED. FAMILY REMAINS AT BEDSIDE
--- NOTE | 2023-10-13 12:30 | NUR ---
OT WORKING WITH PATIENT WITH LUNCH. PATIENT MEDICATIONS GIVEN. PATIENT TOELRATED WELL. PATIENTS FAMILY REQUESTED HER LEFT ARM SKIN TEAR DRESSING TO BE CHANGED D/T TH DRESSING COMING LOOSE. PATIENTS WOUND IS C/D/I AND NO DRAINAGE. WRAPPED DRESSING WITH A NONADHERENT AND KERLIX WRAP. NO OTHER ISSUES AT THIS TIME. PATIENTS FAMILY IN AT THE BEDSIDE. CALL LIGHT IN REACH.
--- NOTE | 2023-10-13 13:14 | NUR ---
UR NOTE MCG INFLAMMATORY BOWEL DISEASE (ISC) INPATIENT 10/11/23 MET CLINICAL INDICATIONS FOR ADMISSION TO INPATIENT CARE GL DAY 1
--- NOTE | 2023-10-13 15:40 | NUR ---
REPORT GIVEN TO MARCIN JARRELL AND [place] JARRELL. ALL QUESTIONS ANSWERED. REVIEWED PLAN OF CARE. PATIENT SHOULD DC HOME TOMMOROW. ELECTROLYTES ARE CURRENTLY WITHIN NORMAL RANGES. PATIENTS 3 DAUGHTERS IN THE ROOM. NO OTHER NEEDS AT THIS TIME. RNS TRANSFERED PATIENT IN BED TO ROOM 109. ALL BELONGINGS SENT WITH PATIENT.
--- NOTE | 2023-10-13 16:00 | NUR ---
RECEIVED REPORT FROM WESLY GARCIA IN CCU. PT WHEELED TO MED/SURG UNIT ON CCU BED. VSS. DAUGHTERS AT THE BEDSIDE. PT DENIES HAVING ANY PAIN AT THIS TIME. PT AND FAMILY STATE NO FURTHER NEEDS AT THIS TIME. BELONGINGS AND FWW BROUGHT FROM CCU. CALL LIGHT WITHIN REACH, BED RAILS UP.
--- NOTE | 2023-10-13 17:18 | NUR ---
PT SITS UP IN BED TO EAT DINNER, DAUGHTER AND FRIEND AT THE BEDSIDE. PT STATES NO NEEDS AT THIS TIME, CALL LIGHT WITHIN REACH, BED RAILS UP.
--- NOTE | 2023-10-13 19:25 | NUR ---
SHIFT REPORT RECEIVED FROM MERCEDES JARRELL, PT RESTING QUIETLY IN BED, ALERT, WITHOUT COMPLAINTS AT THIS TIME, HOB ELEVATED, SIDE RAILS UP X 4 AND BED ALRARM ON.
--- NOTE | 2023-10-13 20:00 | NUR ---
PT ASSISTED UP TO BSC WITH FWW AND 1PA, GAIT SLOW, SL UNSTEADY, VOIDED 125ML YELLOW URINE, INCONT X1 IN ATTENDS, SMEAR OF BROWN STOOL ONLY, PERICARE DONE AND DESITIN APPLIED TO COCCYX AREA. PT BACK TO BED, WARM BLANKETS GIVEN, BED ALARM TURNED BACK ON.
--- NOTE | 2023-10-13 21:20 | NUR ---
PT AWAKE, ALERT ANSWERING QUESTIONS APPROPRIATELY, SPEECH CLEAR, SLOW, VS DONE AND STABLE, ATTENDS DAMP, CHANGED PER BARBARA SANDOVAL, NO STOOL REPORTED, ASSESSMENT COMPLETED, PT DENIES PAIN AT THIS TIME, ABLE TO TAKE PO MEDS WITH SIPS OF WATER, HOB ELEVATED, SIDE RAILS UP X 4, BED ALARM ON AND BED LOW POSITION. PT RESTING.
--- NOTE | 2023-10-13 22:50 | NUR ---
PT RESTING QUIETLY, AWAKENS EASILY, LEFT AC WITH DRIED BLOOD AT EXIT SITE, D'CARMELO INTACT, SITE WITHOUT SWELLING OR REDDNESS, SMALL DRESSING TO SITE, LEFT SKIN TEAR ON FOREARM, DRY WITHOUT DRAINAGE OR SWELLING, COVERED WITH NON ADHERING DRESSING AND KERLIX, R AC SL FLUSHES WELL, SITE INTACT. PT RECOVERED WITH BLANKETS AND CALL LIGHT IN REACH. BED ALARM ON.
--- NOTE | 2023-10-14 00:51 | NUR ---
PT APPEARS TO SLEEP, RESP EVEN AND REG, WITHOUT SIGNS OF DISTRESS.
--- NOTE | 2023-10-14 02:15 | NUR ---
PT LAYING IN BED, UNCOVERED, RN ASKED IF SHE WANTS TO GO TO BSC, PT SAYS YES, 1PA WITH FWW, PT NOTED MISSED VOID AND LIQUID BROWN STOOL, VOIDED 250ML YELLOW URINE PER BSC, SHAYLEE CARE GIVEN, BACK TO BED, REPOSITIONED UP IN BED, PT DECLINES A DRINK OF WATER, HOB ELEVATED APPROX 200 DEGREES, BED ALARM ON, DENIES OTHER NEEDS, RESTING WITH EYES CLOSED.
--- NOTE | 2023-10-14 04:06 | NUR ---
PT CONTINUES TO SLEEP, RESP EVEN AND REG
--- NOTE | 2023-10-14 04:06 | NUR ---
PT APPEARS TO SLEEP, RESP EVEN AND REG.
[2023-10-14 05:05] VITALS: BP 148/61
--- NOTE | 2023-10-14 05:05 | NUR ---
PT AWAKE, ALERT, WITHOUT COMPLAINTS, VS DONE AND STABLE, AFEBRILE, LAB IN FOR AM BLOOD DRAW, PT DENIES NEEDS AT THIS TIME.
[2023-10-14 05:34] LABS: BASOPHILS 0.5 % (0-2); HEMATOCRIT 34.5 % (35.0-50.0); HEMOGLOBIN 11.5 g/dL (12.0-18.0); MCH 27.4 (27-36); MCHC 33.3 g/dl (30-36); MCV 82.3 fl (81-99); MONOCYTES 7.3 % (0-12); NEUTROPHILS 61.2 % (39-80); PLATELET COUNT 213 K/uL (140-440); RBC 4.19 M/ul (4.3-5.7); RDW 13.9 (10.5-15.0)
[2023-10-14 06:04] LABS: ALBUMIN 2.3 g/dL (3.4-5.0); ALBUMIN/GLOBULIN RATIO 0.88 (1.1-2.4); ANION GAP 8.2 (7-21); BILIRUBIN, TOTAL 0.4 ng/dL (0.2-1.0); BUN/CREATININE RATIO 12.9 (6.0-28.6); CALCIUM 8.2 mg/dL (8.5-10.1); CREATININE, SERUM 0.62 mg/dL (0.55-1.02); POTASSIUM 3.2 mmol/L (3.5-5.1); PROTEIN, TOTAL 4.9 g/dL (6.4-8.2)
--- NOTE | 2023-10-14 06:30 | NUR ---
RN TO ROOM, BARBARA SANDOVAL REPORTED PT JUST RETURNED TO BED AFTER GETTING UP TO BSC FOR BM AND VOID OF 200ML, NOTED PT'S SL FROM RIGHT ARM PULLED OUT BY PT AND NEEDLE INTACT, LAYING ON BEDSIDE TABLE, NO BLEEDING NOTED AT SITE, PT GIVEN RT MEDS WITH SIPS OF WATER, HOB ELEVATED,BLANKETS APPLIED.
--- NOTE | 2023-10-14 07:01 | NUR ---
ORDERS RECEIVED BY ASHLEY CAMPOS RN THAT SL DOES NOT NEED TO BE RESTARTED PER DR RESTREPO.
--- NOTE | 2023-10-14 07:35 | NUR ---
RECEIVED REPORT FROM WESLY ARAYA. PT UP TO BSC WITH SOLID WASTE COLLECTION WORKER. ASSUMING CARE OF PT WITH WESLY BURCH.
[2023-10-14] MEDS ORDERED: MIDODRINE HCL5 MG PO (08:21)
[2023-10-14] MEDS ORDERED: AMOX TR-K CLV1 EAC1 PO (08:21)
--- NOTE | 2023-10-14 08:46 | NUR ---
PT SITTING UP IN BED WITH DAUGHTERS AT THE BEDSIDE. PT DENIES PAIN AT THIS TIME. PT UP TO EAT BREAKFAST, ABDOMEN SOFT, NON-TENDER, ACTIVE BOWEL TONES. PT A+O X3. CONTINUES TO HAVE WEAKNESS IN EXTREMETIES, NO NUMBNESS OR TINGLING. PT VOIDING QUANTITY SUFFICIENT, HAS HAD BM THIS MORNING ON BSC WITH ASSISTANCE. PT CONTINUES TO BE ON RA WITHOUT SOB. PT TAKES MEDICATIONS CUT INTO SMALL PEICES WELL BY MOUTH. SKIN TEAR ON LEFT ARM UNCHANGED FROM PREVIOUS ASSESSMENT AND REWRAPPED IN GAUZE AND TAPE. PT STATES NO QUESTIONS AT THIS TIME, CALL LIGHT WITHIN REACH, BED RAILS UP.
[2023-10-14 09:45] VITALS: BP 148/63
--- NOTE | 2023-10-14 10:17 | NUR ---
PT SITTING IN BED WITH DAUGHTERS AT THE BEDSIDE, PT AWAITING EDUCATION FROM PHARMACY FOR [place], STATES NO FURTHER NEEDS AT THIS TIME, CALL LIGHT WITHIN REACH, BED RAILS UP.
== END 2023-10-14 10:15 | disposition home or self-care (01) | DRG 392 ==
LOC: ED 17:46 → CCU 21:51 → MS 10-13 15:45
PROVIDERS: Emergency Medicine; ADMIT Internal Medicine; ATTEND Internal Medicine
DX: K52.9 Noninfective gastroenteritis and colitis, unspecified (principal); E87.20 Acidosis, unspecified; G20.B1 Parkinson's disease with dyskinesia, without mention of fluctuations; I10 Essential (primary) hypertension
CPT/HCPCS: 36415; 51701; 74177; 80048; 80053; 81003; 83605; 83690; 83735; 84132; 85025; 87040; 93005; 93010; 97110; 97112; 97116; 97162; 97166; 97530; 97535; 99285-25; A9270; J0692; J3475; J3480; J3490; J7030; J7040; J7060; Q9967

== ENCOUNTER 2023-10-30 14:30 | Emergency (ER) | payer MEDICARE ==
[~2023-10-30] VITALS: Ht 152.4 cm; Wt 47.6 kg
--- NOTE | ~2023-10-30 | EKG ---
[facility] [address] [place], [place] [address] Draft EK completed, results pending confirmation PATIENT NAME: NELDA CHVAIRA Electrocardiogram DATE OF : 42 PHYSICIAN: PRELIMINARY REPORT #: [id number] REPORT IS CONFIDENTIAL AND NOT TO BE RELEASED WITHOUT AUTHORIZATION
[~2023-10-30 14:30] MED LIST changes: +AMOX TR-K CLV1 EAC1 PO; +KLOR-CON M1515 MEQ PO; +MELATONIN5 M2 PO; +MIDODRINE HCL5 MG PO
--- OUTSIDE RECORDS SUMMARY | 2023-10-30 14:38 | XMS ---
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 Neema has no Care Guidelines for this patient. [place] [facility] MO[facility] NOTE: Visits indicate total known visits. ED/C VISIT TRACKING (12 MO.) [facility] COMPLAINT: - ABD DISTENDED, LOW B/P 10/11/2023 17:46 [facility] [place] TYPE: Emergency COMPLAINT: - VOMITING 03/28/2023 16:[address] 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 - Parkinson's disease - Pneumonia, unspecified organism 02/18/2023 09:13 [facility] [place] TYPE: Emergency COMPLAINT: - WEAKNESS INPATIENT VISIT TRACKING (12 MO.) 10/11/2023 21:51 [facility] [place] TYPE: Medical Surgical COMPLAINT: - COLITIS DIAGNOSES: - Acidosis, unspecified - Acidosis, unspecified - Essential (primary) hypertension - Essential (primary) hypertension - Nausea with vomiting, unspecified - Noninfective gastroenteritis and colitis, unspecified - Noninfective gastroenteritis and colitis, unspecified - PARKINSON'S DIS WITH DYSKINESIA, W/O MENTION OF FL - PARKINSON'S DIS WITH DYSKINESIA, W/O MENTION OF FL 02/18/2023 16:39 [facility] [place] TYPE: Medical Surgical COMPLAINT: - SOPHIA DIAGNOSES: - Abnormal levels of other serum enzymes - Abnormal levels of other serum enzymes - Acquired absence of other organs - Acquired absence of other organs - Acquired absence of other specified parts of digestive tract - Acquired absence of other specified parts of digestive tract - Acute kidney failure, unspecified - Chronic obstructive pulmonary disease, unspecified - Chronic obstructive pulmonary disease, unspecified - Contact with and (suspected) exposure to COVID-19 - Contact with and (suspected) exposure to COVID-19 - Dependence on supplemental oxygen - Dependence on supplemental oxygen - Disorientation, unspecified - Disorientation, unspecified - Do not resuscitate - Do not resuscitate - Dysphagia, oropharyngeal phase - Dysphagia, oropharyngeal phase - Essential (primary) hypertension - Essential (primary) hypertension - Hormone replacement therapy - Hormone replacement therapy - Hyperlipidemia, unspecified - Hyperlipidemia, unspecified - Hypokalemia - Hypokalemia - Hypotension, unspecified - Hypotension, unspecified - Hypothyroidism, unspecified - Hypothyroidism, unspecified - senior care (current) use of aspirin - 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
[2023-10-30] MEDS ORDERED: HYDROCHLOROTHIA25 MG PO (15:33)
[2023-10-30 16:05] LABS: BASOPHILS 0.8 % (0-2); EOSINOPHILS 1.1 % (0-6); HEMATOCRIT 40.2 % (35.0-50.0); HEMOGLOBIN 13.6 g/dL (12.0-18.0); LYMPHOCYTES 18.8 % (24-44); MCH 27.4 (27-36); MCHC 33.7 g/dl (30-36); MCV 81.2 fl (81-99); MONOCYTES 9.4 % (0-12); NEUTROPHILS 69.9 % (39-80); PLATELET COUNT 366 K/uL (140-440); RBC 4.95 M/ul (4.3-5.7); RDW 13.8 (10.5-15.0)
[2023-10-30 16:20] LABS: ALBUMIN 3.5 g/dL (3.4-5.0); ALBUMIN/GLOBULIN RATIO 1.06 (1.1-2.4); ANION GAP 5.9 (7-21); BILIRUBIN, TOTAL 0.6 ng/dL (0.2-1.0); BUN/CREATININE RATIO 25.64 (6.0-28.6); CALCIUM 9.6 mg/dL (8.5-10.1); CREATININE, SERUM 0.78 mg/dL (0.55-1.02); MAGNESIUM 1.4 mg/dL (1.8-2.4); POTASSIUM 2.9 mmol/L (3.5-5.1); PROTEIN, TOTAL 6.8 g/dL (6.4-8.2)
[2023-10-30 20:09] LABS: BILIRUBIN, URINE NEGATIVE (negative); BLOOD/HGB, URINE NEGATIVE (Negative); KETONE, URINE NEGATIVE (Negative); LEUK ESTERASE, URINE NEGATIVE (negative); NITRITE, URINE NEGATIVE (negative)
[2023-10-30 21:11] VITALS: BP 145/90
== END 2023-10-30 21:14 | disposition home or self-care (01) ==
LOC: ED 14:30
PROVIDERS: Emergency Medicine
DX: E87.6 Hypokalemia (principal); E83.42 Hypomagnesemia; G20.A1 Parkinson's disease without dyskinesia, without mention of fluctuations; R33.9 Retention of urine, unspecified; I10 Essential (primary) hypertension; Z79.899 Other long term (current) drug therapy; Z79.82 Long term (current) use of aspirin
CPT/HCPCS: 36415; 51702; 51798; 80053; 81003; 83735; 85025; 93005; 93010; 99284-25; A9270; J3475; J7040

== ENCOUNTER 2025-09-22 12:37 | Observation (INO) | payer MEDICARE, OTHER ==
[~2025-09-22] VITALS: Ht 152.4 cm; Wt 54.2 kg
--- OUTSIDE RECORDS SUMMARY | ~2025-09-22 | XMS | Continuity of Care Document ---
Demographics + + + | Address | [address] | | | [place] [address] | + + + | Preferred Language | Unknown | + + + | Marital Status | | + + + | Jain Affiliation | Unknown | + + + | Race | White | + + + | Ethnic Group | Not or | + + + Author + + + | Author | [facility] | + + + | Organization | [facility] | + + + | Address | [address] | | | [place] [address] | + + + | Phone | | + + + Care Team Providers + + + + | Care Director Of Teaching And Learning Name | Role | Phone | + + + + Unavailable | Unavailable | + + + + Unavailable | Unavailable | + + + + Allergies No information. Encounters No information. Functional Status No information. Immunizations No information. Medications + + + + | date | description | facility | + + + + | (no date) | GABAPENTIN | [facility] | | | | [facility] | + + + + | (no date) | GABAPENTIN | [facility] | | | | [facility] | + + + + | (no date) | ASPIRIN | [facility] | | | | [facility] | + + + + | (no date) | ASPIRIN | [facility] | | | | [facility] | + + + + | (no date) | CARBIDOPA/LEVODOPA | [facility] | | | | [facility] | + + + + | (no date) | CARBIDOPA/LEVODOPA | [facility] | | | | [facility] | + + + + | (no date) | LOVASTATIN | [facility] | | | | [facility] | + + + + | (no date) | LOVASTATIN | [facility] | | | | [facility] | + + + + | (no date) | Psyllium Husk (With Sugar) | [facility] | | | | [facility] | + + + + | (no date) | Psyllium Husk (With Sugar) | [facility] | | | | [facility] | + + + + | (no date) | MELATONIN | [facility] | | | | [facility] | + + + + | (no date) | MELATONIN | [facility] | | | | [facility] | + + + + | (no date) | HYDROCHLOROTHIAZIDE | [facility] | | | | [facility] | + + + + | (no date) | HYDROCHLOROTHIAZIDE | [facility] | | | | [facility] | + + + + | (no date) | ROPINIROLE HCL | [facility] | | | | [facility] | + + + + | (no date) | ROPINIROLE HCL [facility] | | | [facility] | + + + + | (no date) | ASPIRIN | [facility] | | | | [facility] | + + + + | (no date) | ASPIRIN | [facility] | | | [facility] | + + + + | (no date) | TROSPIUM CHLORIDE | [facility] | | | | [facility] | + + + + | (no date) | TROSPIUM CHLORIDE | [facility] | | | | [facility] | + + + + | (no date) | ALBUTEROL SULFATE | [facility] | | | | [facility] | + + + + | (no date) | ALBUTEROL SULFATE | [facility] | | | | [facility] | + + + + | (no date) | OXYBUTYNIN CHLORIDE | [facility] | | | | [facility] | + + + + | (no date) | OXYBUTYNIN CHLORIDE | [facility] | | | | [facility] | + + + + Problems No information. Procedures No information. Results/Labs No information. Social History +--------+ + + | date | description | facility | +--------+ + + Vital Signs No information."
--- OUTSIDE RECORDS SUMMARY | ~2025-09-22 | XMS | Continuity of Care Document ---
Demographics + + + | Address | [address] | | | [place] [address] | + + + | Preferred Language | Unknown | + + + | Marital Status | | + + + | Spiritism Affiliation | Unknown | + + + | Race | White | + + + | Ethnic Group | Not or | + + + Author + + + | Author | [facility] | + + + | Organization | [facility] | + + + | Address | [address] | | | [place] [address] | + + + | Phone | | + + + Care Team Providers + + + + | Care Hospice Home Care Coordinator Name | Role | Phone | + [...] | CARB[place]OP[place]ODOP[place] [facility] [place] [facility] | + + + + | (no date) | LOVASTATIN [facility] | [facility] | + + + + | (no date) | LOVASTATIN [facility] | | [facility] | + + + + | (no date) | Psyllium Husk (With Sugar) [place] [facility] [place] [facility] | [facility] | + + + + | (no date) | Psyllium Husk (With Sugar) [place] [facility] [place] | [facility] | + + + + | (no date) | MELATONIN | [facility] | | | | [facility] | + + + + | (no date) | MELATONIN | [facility] | | | | [facility] | + + + + | (no date) | HYDROCHLOROTHIAZIDE | [facility] | | | | [facility] | + + + + | (no date) | HYDROCHLOROTHIAZIDE | [facility] | | | | [facility] | + + + + | (no date) | ROPINIROLE HCL | [facility] | | | | [facility] | + + + + | (no date) | ROPINIROLE HCL | [facility] | | | | [facility] | + + + + | (no date) | ASPIRIN | [facility] | | | [facility] | + + + + | (no date) | ASPIRIN | [facility] | | | | [facility] | + + + + | (no date) | TROSPIUM CHLORIDE | [facility] | | | | [facility] | + + + + | (no date) | TROSPIUM CHLORIDE | [facility] | | | | [facility] | + + + + | (no date) | ALBUTEROL SULFATE [place] [facility] [place] [facility] | [facility] | + + + + | (no date) | ALBUTEROL SULFATE [facility] | [facility] | + + + + | (no date) | OXYBUTYNIN CHLORIDE [facility] | | [facility] | + + + + | (no date) | OXYBUTYNIN CHLORIDE [facility] | | [facility] | + + + + Problems No information. Procedures No information. Results/Labs No information. Social History +--------+ + + | date | description | facility | +--------+ + + Vital Signs No information."
--- OUTSIDE RECORDS SUMMARY | 2025-09-22 12:38 | XMS ---
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 [place] VISIT COUNT (12 MO.) 1 [facility] TOTAL 1 NOTE: Visits indicate total known visits. ED/UCC VISIT TRACKING (12 MO.) 09/22/2025 12:[address] [facility] [place] TYPE: Emergency COMPLAINT: - SOB INPATIENT VISIT TRACKING (12 MO.) No inpatient visits to display in this time frame [email or web address]
[2025-09-22] MEDS ORDERED: GLYCOPYRROLATE1 MG PO (12:51)
[2025-09-22] MEDS ORDERED: ALENDRONATE SOD70 MG PO (12:52)
[2025-09-22] MEDS ORDERED: LACTATED RINGER'S 1,000 ML IV ONE ×2 (13:00)
[2025-09-22 13:08] LABS: BASOPHILS 0.2 % (0.1-1.2); EOSINOPHILS 0 % (0.7-5.8); LYMPHOCYTES 3.8 % (19.3-51.7); MCH 28.1 PG (25.6-32.2); MCHC 32.2 g/dL (32.2-35.5); MCV 87.4 fL (79.4-94.8); MONOCYTES 3.5 % (4.7-12.5); NEUTROPHILS 92.1 % (34.0-71.1); RBC 3.98 M/uL (3.93-5.22)
[2025-09-22 13:19] LABS: BLOOD/HGB, URINE NEGATIVE (Negative); KETONE, URINE TRACE (Negative); LEUK ESTERASE, URINE NEGATIVE (negative); NITRITE, URINE POSITIVE (negative)
[2025-09-22 13:27] LABS: ALT (SGPT) 7.0 U/L (14-59); AST (SGOT) 13.0 U/L (15-37); GLOMERULAR FILTRATION RATE,EST 31.0 mL/min (>60); PROTEIN, TOTAL 4.9 g/dL (6.4-8.2); UREA NITROGEN 35.0 mg/dL (7-18)
[2025-09-22 13:30] LABS: BACTERIA, URINE RARE /hpf (negative); CASTS, URINE HYALINE 2+ \\lpf; CRYSTALS, URINE NONE SEEN (0-1+); EPITHELIAL CELLS, URINE SQUAMOUS 1+ /lpf (0-1+); REFLEX CULTURE, URINE No (No)
[2025-09-22 13:39] LABS: LACTIC ACID, BLOOD 5.0 mmol/L (0.4-2.0)
[2025-09-22] MEDS ORDERED: NOREPINEPHRINE BITARTRATE 250 ML IV SCH (13:45)
[2025-09-22] MEDS ORDERED: LACTATED RINGER'S 1,000 ML IV SCH (14:00)
[2025-09-22 15:26] LABS: LACTIC ACID, BLOOD 6.1 mmol/L (0.4-2.0)
[2025-09-22] MEDS ORDERED: ATROPINE SULFATE 1% OPTH DROPS SL PRN (17:00)
[2025-09-22] MEDS ORDERED: LORazepam 2 MG/ML VIAL IV PRN ×2 (17:00)
[2025-09-22] MEDS ORDERED: ONDANSETRON 4 MG TAB ODT SL PRN (17:00)
[2025-09-22] MEDS ORDERED: METOCLOPRAMIDE HCL 10 MG/2 ML SDV IV PRN (17:00)
[2025-09-22] MEDS ORDERED: METOCLOPRAMIDE HCL 10 MG TAB PO PRN (17:00)
[2025-09-22] MEDS ORDERED: IBUPROFEN 400 MG TAB PO PRN (17:00)
[2025-09-22] MEDS ORDERED: HALOPERIDOL LACTATE 5 MG/ML VIAL IV PRN ×2 (17:00)
[2025-09-22] MEDS ORDERED: PROCHLORPERAZINE MALEATE 10 MG TAB PO PRN (17:00)
[2025-09-22] MEDS ORDERED: ARTIFICIAL TEARS 15 ML BTL OU PRN (17:00)
[2025-09-22] MEDS ORDERED: ACETAMINOPHEN 650 MG SUPP PR PRN (17:00)
[2025-09-22] MEDS ORDERED: PROCHLORPERAZINE 25 MG SUPP PR PRN (17:00)
[2025-09-22] MEDS ORDERED: KETOROLAC TROMETHAMINE 15 MG/ML VIAL IV PRN (17:00)
[2025-09-22] MEDS ORDERED: fentaNYL citrate 100 MCG/2 ML VIAL IV PRN (17:00)
[2025-09-22] MEDS ORDERED: LORazepam 0.5 MG TAB PO PRN (17:00)
[2025-09-22] MEDS ORDERED: MORPHINE SULFATE 4 MG/ML VIAL IV PRN (17:00)
[2025-09-22] MEDS ORDERED: ACETAMINOPHEN 325 MG TAB PO PRN (17:00)
[2025-09-22] MEDS ORDERED: LIDOCAINE 2% VISCOUS 6 ML SYR TOP ONE (17:15)
[2025-09-22] MEDS ORDERED: ALBUTEROL/IPRATROPIUM 3 ML NEB INH PRN (17:15)
[2025-09-22] MEDS ORDERED: LEVODOPA/CARBIDOPA 25/100 1 EA TAB PO SCH ×2 (17:15→21:00)
--- NOTE | 2025-09-22 17:35 | NUR ---
Pt arrived to room via ED stretcher, transferred here by ED RN Terrie. 2 RN skin assessment done at bedside with WESLY Falcon and WESLY Nichols, as well as diaper care, cath care, padmini care. Clean diaper applied, fresh chux applied, warm blanket provided. Family in room. VS obtained. Assessment done at this time. Questions from the family answered. Oriented family to call light and room. Hospice cart in room delivered by Charlotte Hodge. Family stated they are having pizza delivered shortly.
[2025-09-22 17:52] VITALS: BP 64/46
--- NOTE | 2025-09-22 19:15 | NUR ---
REPORT RECEIVED FROM KASEY JARRELL. pt RESTING IN THE BED. BOARD UPDATED. FAMILY IN RM. RR EVEN AND UNLABORED. CALL LIGHT WITHIN REACH. 2L OXYMASK IN PLACE FOR COMFORT.
[2025-09-22] MEDS ORDERED: ONDANSETRON 4 MG TAB ODT SL SCH (20:00)
[2025-09-22] MEDS ORDERED: ROPINIROLE HCL 1 MG TAB PO SCH (21:00)
[2025-09-22] MEDS ORDERED: GABAPENTIN 300 MG CAP PO SCH (21:00)
--- NOTE | 2025-09-22 21:10 | NUR ---
IN RM TO DO ASSESSMENT. pt FAMILY IN THE RM. pt UNABLE TO SWALLOW AT THIS TIME. PO MEDS HELD AT THIS TIME. SCHEDULED ODT ZOFRAN ADMINISTERED. IV'S ASSESSED, WNL. pt FAMILY DENIES ANY NEEDS AT THIS TIME. CALL LIGHT WITHIN REACH. pt POSITIONED ON PILLOW UNDER RIGHT SIDE.
--- NOTE | 2025-09-22 22:45 | NUR ---
PRN PAIN MEDS ADMINISTERED. pt WAS RESTLESS AND MOANING AT THIS THIS TIME. pt POSITIONED ON PILLOWS UNDER BOTH HIPS. pt DENIES ANY OTHER NEEDS AT THIS TIME. CALL LIGHT WITHIN REACH.
--- NOTE | 2025-09-23 00:11 | NUR ---
pt RESTING IN THE BED WITH EYES CLOSED. RR EVEN AND UNLABORED. CALL LIGHT WITHIN REACH.
--- NOTE | 2025-09-23 02:03 | NUR ---
pt REPOSITIONED WITH PILLOWS UNDER LEFT SIDE. pt RR EVEN AND UNLABORED. CALL LIGHT WITHIN REACH.
--- NOTE | 2025-09-23 03:00 | NUR ---
THIS RN CALLED INTO RM BY pt's DAUGHTER. DAUGHTER HAD THOUGHT THAT pt HAD THIS RN LISTENED TO pt APICAL PULSE FOR A MINIUTE NO PULSE FOUND. pt PASSED AT 0300. THIS RN REMOVED OXYMASK AND LEFT THE RM TO CALL THE DOCTOR. NOTIFIED OF PATIENTS PASSSING.
--- NOTE | 2025-09-23 03:33 | NUR ---
ER MD TO FLOOR TO PRONOUNCE TIME OF . PRONOUNCED TIME OF AT 0329. DAUGHTERS IN RM. NO NEEDS AT THIS TIME.
--- NOTE | 2025-09-23 05:03 | NUR ---
pt TAKEN FROM BY [facility]. FAMILY DENIES ANY NEEDS AT THIS TIME. CALL LIGHT WITHIN REACH.
[2025-09-25] MEDS ORDERED: SCOPOLAMINE 1 MG/3 DAYS PATCH 1 EACH TDSY TD SCH (09:00)
== END 2025-09-23 05:00 ==
LOC: ED 12:37 → MS 12:38
PROVIDERS: Emergency Medicine; ADMIT Internal Medicine; ATTEND Internal Medicine
DX: A41.9 Sepsis, unspecified organism (principal); R65.21 Severe sepsis with septic shock; K55.039 Acute (reversible) ischemia of large intestine, extent unspecified; I10 Essential (primary) hypertension; I70.0 Atherosclerosis of aorta
CPT/HCPCS: 36415; 51702; 71045; 74177; 80053; 81001; 83605; 85025; 85060; 87040; 96365; 96375; 96376; 99285-25; A9270; G0378; J0696; J2060; J2270; J7121; Q9967